=== PATIENT | female | born 1995 | race Caucasian/White ===

== ENCOUNTER 2017-06-04 20:43 | Emergency (ER) | payer OTHER ==
[~2017-06-04] VITALS: Ht 157.5 cm; Wt 68.1 kg
[2017-06-04 20:45] VITALS: TEMP 36.9; Ht 157.5 cm; Wt 68.1 kg
[2017-06-04] MEDS ORDERED: SODIUM CHLORIDE 0.9% 1000ML 1,000 ML IV STA (20:56)
[2017-06-04] MEDS ORDERED: PROMETHAZINE HCL INJ 6.25 MG in SODIUM CHLORIDE 0.9% 50ML 50 ML IV STA (20:56)
[2017-06-04] MEDS ORDERED: MoRPHine SULFATE 4 MG/ML 1 ML CARP\\VIAL IV STA (20:56)
[2017-06-04] MEDS ORDERED: ONDANSETRON INJ 2 MG/ML 2 ML VIAL IV STA ×2 (20:56→22:18)
[2017-06-04] MEDS ORDERED: ACETAMINOPHEN 500 MG TAB PO STA (20:56)
[2017-06-04] MEDS ORDERED: MoRPHine SULFATE 2 MG/ML CARP ONE (21:02)
--- NOTE | 2017-06-04 21:30 | DIAGNOSTIC IMAGING REPORT ---
CT SCAN OF THE BRAIN WITHOUT IV CONTRAST CLINICAL HISTORY: Head injury. COMPARISON STUDY: No priors. TECHNIQUE: Unenhanced axial CT scan of the brain is performed from the vertex to the skull base. A dose lowering technique was utilized adhering to the principles of ALARA. CT DOSE: 537.48 mGy.cm FINDINGS: Brain parenchyma: The brain parenchyma is normal in appearance. There is no hemorrhage, mass effect, or evidence of acute territorial ischemia by CT criteria. Hogue-white matter is preserved. No extra-axial fluid collection is seen. Ventricles, sulci, cisterns: Normal in configuration. Intracranial vasculature: The visualized intracranial vasculature at the skull base is normal in appearance. Calvarium: There is no depressed calvarial fracture. Sinuses and mastoids: The visualized paranasal sinuses are clear. The mastoid air cells are well pneumatized. Orbits: The bony orbits are grossly intact. IMPRESSION: No acute intracranial abnormality. Electronically signed by: Gurinder Justin M.D. 06/04/2017 9:28 PM Dictated Date/Time: 06/04/2017 9:27 PM
--- NOTE | 2017-06-04 21:43 | EMERGENCY ROOM VISIT NOTE ---
History Report prepared by Diana: Vladislav Mcfarlane Under the Supervision of: Dr. Gurinder Palomo M.D. First contact with patient: 20:50 Chief Complaint: HEAD INJURY (MINOR) Stated Complaint: HEAD INJURY, NEAR SYNCOPE History of Present Illness The patient is a 21 year old female who presents to the Emergency Room with complaints of a constant headache that started two days ago. She rates her pain as a 9/10 in severity. The patient states that she fell and hit the back of her head on carpet two nights ago. She states that she was drinking that night and denies any loss of conscious. She reports that following the incident she developed a headache. She states that she went to urgent care tonight and vomited. The patient admits that her head is "pounding" and admits that the pain is mostly in the back of her head. The patient admits that she has taken two Excedrin and Advil for her symptoms. She admits to a history of concussions and migraines. The patient states that she had not come in sooner because she thought the headache was due to her migraine history, but admits that her symptoms are worse. The patient admits that she has been congested. The patient denies fevers, cough, and cold. Source of History: patient Onset: two days ago Position: head Symptom Intensity: 9/10 Quality: other (pounding) Timing: constant Modifying Factors (Relieving): other (Advil, excedrin) Associated Symptoms: + nausea, + vomiting, No LOC, No fevers, No cough Review of Systems See HPI for pertinent positives & negatives. A total of 10 systems reviewed and were otherwise negative. Past Medical & Surgical Medical Problems: (1) Spondylosis Family History Patient reports no known family medical history. Social History Smoking Status: Never Smoker Alcohol Use: occasionally Drug Use: marijuana Marital Status: single Housing Status: lives with roommate Occupation Status: [employer] student Current/Historical Medications Scheduled Biotin (Biotin 5000), 1 CAP PO DAILY Calcium Carbonate-Vitamin D (Calcium), 1 TAB PO DAILY Cyanocobalamin (Vitamin B-12), 1,000 MCG PO DAILY Drospirenone-Ethinyl Estradiol (Sarah), 1 TAB PO DAILY Escitalopram Oxalate (Lexapro), 10 MG PO DAILY Magnesium Oxide (Mag-Ox), 400 MG PO DAILY Multiple Vitamins W/ Minerals (Womens One Daily), 1 TAB PO DAILY Naproxen (Naprosyn), 500 MG PO BID Allergies Uncoded Allergies: "ANYTHING ENDING IN MYCIN" PER PT (Allergy, Severe, ., 06/04/17) Physical Exam Vital Signs Date Time Temp Pulse Resp B/P (MAP) Pulse Ox O2 Delivery O2 Flow Rate FiO2 06/04/17 20:45 36.9 88 16 139/105 98 Room Air Physical Exam GENERAL: Patient is in no acute distress. Dry heaving. HEENT: No acute trauma, normocephalic atraumatic, mucous membranes moist, no nasal congestion, no scleral icterus. Pupils are equal, round, and reactive to light. NECK: No stridor, no adenopathy, no meningismus, trachea is midline. LUNGS: Clear to auscultation bilaterally, no wheeze, no rhonchi, breath sounds equal. HEART: Without murmurs gallops or rubs, regular rate and rhythm. ABDOMEN: Soft, nontender, bowel sounds positive, no hernias, no peritonitis. EXTREMITIES: No cyanosis or edema, full range of motion of all the joints without pain or difficulty, no signs for acute trauma. NEUROLOGIC: Oriented x 3, no acute motor or sensory deficits, no focal weakness. No pronator drift or cerebellar dysfunction. GCS 15. SKIN: No rash, no jaundice, no diaphoresis. Medical Decision & Procedures ER Provider Diagnostic Interpretation: CT results as stated below per my review and radiologist interpretation: CT SCAN OF THE BRAIN WITHOUT IV CONTRAST CLINICAL HISTORY: Head injury. COMPARISON STUDY: No priors. TECHNIQUE: Unenhanced axial CT scan of the brain is performed from the vertex to the skull base. A dose lowering technique was utilized adhering to the principles of ALARA. CT DOSE: 537.48 mGy.cm FINDINGS: Brain parenchyma: The brain parenchyma is normal in appearance. There is no hemorrhage, mass effect, or evidence of acute territorial ischemia by CT criteria. Hogue-white matter is preserved. No extra-axial fluid collection is seen. Ventricles, sulci, cisterns: Normal in configuration. Intracranial vasculature: The visualized intracranial vasculature at the skull base is normal in appearance. Calvarium: There is no depressed calvarial fracture. Sinuses and mastoids: The visualized paranasal sinuses are clear. The mastoid air cells are well pneumatized. Orbits: The bony orbits are grossly intact. IMPRESSION: No acute intracranial abnormality. Electronically signed by: Gurinder Justin M.D. 06/04/2017 9:28 PM Dictated Date/Time: 06/04/2017 9:27 PM Medications Administered Medications (Trade) Dose Ordered Sig/Deacon Route Start Time Stop Time Status Last Admin Dose Admin Ondansetron HCl (Zofran Inj) 4 mg NOW STAT IV 06/04/17 20:56 06/04/17 20:59 DC 06/04/17 21:06 4 MG Sodium Chloride 1,000 ml @ 999 mls/hr Q1H1M STAT IV 06/04/17 20:56 06/04/17 21:56 DC 06/04/17 21:07 999 MLS/HR Acetaminophen (Tylenol Tab) 1,000 mg NOW STAT PO 06/04/17 20:56 06/04/17 20:59 DC 06/04/17 21:06 1,000 MG Promethazine HCl 6.25 mg/Sodium Chloride 50.25 ml @ 204 mls/hr NOW STAT IV 06/04/17 20:56 06/04/17 21:10 DC 06/04/17 21:33 204 MLS/HR Morphine Sulfate (MoRPHine SULFATE INJ) 2 mg STK-MED ONCE .ROUTE 06/04/17 21:02 06/04/17 21:03 DC 06/04/17 21:07 2 MG Ketorolac Tromethamine (Toradol Inj) 30 mg NOW STAT IV 06/04/17 22:18 06/04/17 22:19 DC 06/04/17 22:23 30 MG Ondansetron HCl (Zofran Inj) 4 mg NOW STAT IV 06/04/17 22:18 06/04/17 22:19 DC 06/04/17 22:24 4 MG ED Course 2050: The patient was evaluated in room A10. A complete history and physical exam was performed. 2055: Ordered Promethazine HCl 6.25 mg/ Sodium Chloride 50.25 ml @ 204 mls/hr IV , Tylenol Tab 1000 mg PO, Sodium Chloride 1000 ml @ 999 mls/hr IV, Zofran Injection 4 mg IV. 2101: Ordered Morphine Sulfate 2 mg IV. 2216: I reevaluated the patient and she is feeling better. The patient reports that she would like something to eat. 2218: Ordered Zofran Injection 4 mg IV, Toradol Injection 30 mg IV. 2306: Reevaluated the patient. Discussed results and discharge instructions: She verbalized understanding and agreement. The patient is ready for discharge. 2315: Ordered Ondansetron HCL 1 homepack PO. Medical Decision The patient is a 21 year old female who presents to the ED with complaints of a constant headache that began two days ago. Differential diagnoses considered include migraine, headache, concussion, intracranial bleeding, dehydration, tension headache, and electrolyte imbalance. The patient presents after suffering head trauma. She described symptoms consistent with concussion. Brain CT was done, no acute bleed or mass effect was seen. On exam, there were no focal neurologic deficits. The patient had a Chase Coma Scale of 15. The patient received IV saline, IV Phenergan and IV Zofran. She was given oral Tylenol. Patient did receive IV Toradol and a second dose of IV Zofran. She received IV morphine for additional pain control. Patient feels improved. I do think she can be discharged. She was given head injury precautions. She will follow with the concussion Center for clearance. She was told to follow with [facility] as well. If worsening, she can return. She was given a few Zofran to use for nausea, [id number] pain meds were advised for her headache. If worsening, she can return. Head Trauma GCS Score: 15 Medication Reconcilliation Current Medication List: was personally reviewed by me Blood Pressure Screening Patient's blood pressure: Elevated blood pressure Blood pressure disposition: Elevated BP felt to be situational Impression Primary Impression: Concussion Additional Impressions: Vomiting Head trauma Scribe Attestation The scribe's documentation has been prepared under my direction and personally reviewed by me in its entirety. I confirm that the note above accurately reflects all work, treatment, procedures, and medical decision making performed by me. Departure Information Dispostion Home / Self-Care Referrals No Doctor, Assigned (PCP) [facility] Forms HOME CARE DOCUMENTATION FORM, IMPORTANT VISIT INFORMATION Patient Instructions ED Concussion, My [facility] Additional Instructions tylenol or advil for pain zofran 1 tab every 6 hours for nausea fluids rest no gym or sports until cleared by concussion center---call for appt--[phone] or contact [facility] no prolonged times of concentration as discussed return if worsening Problem Qualifiers
[2017-06-04] MEDS ORDERED: KETOROLAC TROMETHAMINE 30 MG/ML VIAL IV STA (22:18)
[2017-06-04] MEDS ORDERED: ONDANSETRON HOME PACK 4MG OD TAB PO ONE (23:15)
[2017-06-04 23:22] VITALS: BP 125/83; PULSE 82; O2SAT 98
[2017-06-05] MEDS ORDERED: ESCI1TAB6 PO (19:28)
[2017-06-05] MEDS ORDERED: NAPR-1169 PO (21:48)
[2017-06-05] MEDS ORDERED: BIOTCAP2 PO (21:48)
[2017-06-05] MEDS ORDERED: DROS1TAB24 PO (21:48)
[2017-06-05] MEDS ORDERED: CYAN10005 PO (21:48)
[2017-06-05] MEDS ORDERED: MAGN400T6 PO (21:48)
[2017-06-05] MEDS ORDERED: ESCI1TAB9 PO (21:48)
[2017-06-05] MEDS ORDERED: CALC-51 PO (21:48)
[2017-06-05] MEDS ORDERED: MULT-240 PO (21:48)
== END 2017-06-04 23:33 | disposition home or self-care (01) ==
LOC: C.EDB 20:45 → C.EDA 23:33
DX: S06.0X9A Concussion with loss of consciousness of unspecified duration, initial encounter (principal); M47.9 Spondylosis, unspecified; F12.90 Cannabis use, unspecified, uncomplicated; Z79.1 Long term (current) use of non-steroidal anti-inflammatories (NSAID); W19.XXXA Unspecified fall, initial encounter

== ENCOUNTER 2017-06-05 17:54 | Emergency (ER) | payer OTHER ==
[~2017-06-05] VITALS: Ht 157.5 cm; Wt 67.0 kg
[2017-06-05 18:08] VITALS: Ht 157.5 cm; Wt 67.0 kg
--- NOTE | 2017-06-05 19:05 | DIAGNOSTIC IMAGING REPORT ---
HEAD CT NONCONTRAST CT DOSE: 614.27 mGy.cm HISTORY: head injury, worsening symptoms, confusion, vomiting TECHNIQUE: Multiaxial CT images of the head were performed without the use of intravenous contrast. Automated exposure control was utilized for this study. A dose lowering technique was utilized adhering to the principles of ALARA. Comparison: Head CT 06/04/2017. Findings: The paranasal sinuses and mastoid air cells are clear. The calvarium and skull base are intact. The ventricles and sulci are within normal limits. There is no mass, hematoma, midline shift, or acute infarct. Impression: No acute intracranial abnormality. Electronically signed by: Dale Ramirez M.D. 06/05/2017 7:03 PM Dictated Date/Time: 06/05/2017 7:00 PM
[2017-06-05] MEDS ORDERED: ESCI1TAB6 PO (19:28)
--- NOTE | 2017-06-05 19:51 | EMERGENCY ROOM VISIT NOTE ---
History First contact with patient: 18:17 Chief Complaint: HEAD INJURY (MINOR) Stated Complaint: CONCUSSION History of Present Illness The patient is a 21 year old female who presents to the Emergency Room with complaints of a closed head injury. The patient reports that she sustained a head injury 4 days ago. She fell off a chair and hit the back of her head at that time. There was no loss of consciousness. The patient was seen here yesterday and had a negative head CT scan. The patient states that since the injury, she has had a persistent headache and had 2 episodes of vomiting yesterday. She does have a history of migraines as well as states that these headaches feel different. She does report a syncopal episode which happened 2 days ago, but feels this may be due to smoking marijuana. She states that she was rechecked today at [facility] and has been contacting them throughout the day. They were apparently concerned because the patient seemed confused and sent her here for a repeat CT scan due to concern for delayed bleed. The patient states that she has been falling asleep frequently and has felt "out of it." She rates her discomfort a 9/10. She states that she has been taking nausea medication with relief. She denies any blurred vision, slurred speech, numbness or weakness. She denies any new trauma. Review of Systems A complete 10 point review of systems was reviewed with the patient with pertinent positives and negatives as per history of present illness. All else were negative. Past Medical/Surgical History Medical Problems: (1) Spondylosis Family History Patient reports no known family medical history. Social History Smoking Status: Never Smoker Alcohol Use: occasionally Drug Use: marijuana Marital Status: single Housing Status: lives with roommate Occupation Status: [employer] student Current/Historical Medications Scheduled Biotin (Biotin 5000), 5 MG PO DAILY Calcium Carbonate-Vitamin D (Calcium), 1 TAB PO DAILY Cyanocobalamin (Vitamin B-12), 1,000 MCG PO DAILY Drospirenone-Ethinyl Estradiol (Sarah), 1 TAB PO DAILY Escitalopram Oxalate (Lexapro), 10 MG PO DAILY Escitalopram Oxalate (Lexapro), 5 MG PO DAILY Magnesium Oxide (Mag-Ox), 400 MG PO DAILY Multiple Vitamins W/ Minerals (Womens One Daily), 1 TAB PO DAILY Scheduled PRN Naproxen (Naprosyn), 500 MG PO BID PRN for Pain Physical Exam Vital Signs Date Time Temp Pulse Resp B/P (MAP) Pulse Ox O2 Delivery O2 Flow Rate FiO2 06/05/17 21:42 36.8 73 16 128/84 97 06/05/17 18:08 36.8 73 16 128/84 97 Room Air Physical Exam VITALS: Vitals are noted on the nurse's note and reviewed by myself. Vital signs stable. GENERAL: This is a 21-year-old female, in no acute distress, nondiaphoretic, well-developed well-nourished. SKIN: The skin was without rashes, erythema, edema, or bruising. EARS: External auditory canals clear, tympanic membranes pearly israel without erythema or effusion bilaterally. No hemotympanum. EYES: Pupils equal round and reactive to light and accommodation. Conjunctivae without injection, sclerae without icterus. Extraocular movements intact. MOUTH: Mucous membranes moist. NECK: Supple without nuchal rigidity. Cervical spine is nontender. HEART: Regular rate and rhythm without murmurs gallops or rubs. LUNGS: Clear to auscultation bilaterally without wheezes, rales or rhonchi. MUSCULOSKELETAL: Range of motion throughout. Strength 5/5 throughout. NEURO: Patient was alert and oriented to person place and time. Normal sensation to light and sharp touch. Deep tendon reflexes 2+ throughout. No focal neurological deficits. Normal finger to nose testing. Negative Romberg and pronator drift. Medical Decision & Procedures ER Provider Diagnostic Interpretation: HEAD CT NONCONTRAST CT DOSE: 614.27 mGy.cm HISTORY: head injury, worsening symptoms, confusion, vomiting TECHNIQUE: Multiaxial CT images of the head were performed without the use of intravenous contrast. Automated exposure control was utilized for this study. A dose lowering technique was utilized adhering to the principles of ALARA. Comparison: Head CT 06/04/2017. Findings: The paranasal sinuses and mastoid air cells are clear. The calvarium and skull base are intact. The ventricles and sulci are within normal limits. There is no mass, hematoma, midline shift, or acute infarct. Impression: No acute intracranial abnormality. Medical Decision Differential diagnosis includes intracranial hemorrhage, postconcussive syndrome , concussion, migraine headache, among others. The patient is a 21-year-old female who presents today complaining of persistent symptoms following a head injury. Patient was seen here yesterday and had a negative head CT. However, the patient complains of worsening symptoms and [facility] has apparently been in contact with the patient all day and feels she needs a repeat CT. Repeat CT was performed and read by radiology with no acute findings. Patient was reassured. She was given information for the concussion clinic. She had no neurological deficits on my exam and GCS was 15. She was encouraged to continue to follow-up with [facility] and the concussion clinic. She verbalized understanding of my assessment and treatment plan and was discharged home in good condition. Head Trauma GCS Score: 15 Medication Reconcilliation Current Medication List: was personally reviewed by me Blood Pressure Screening Patient's blood pressure: Normal blood pressure Impression Primary Impression: Concussion Departure Information Dispostion Home / Self-Care Condition GOOD Referrals [facility] (PCP) Patient Instructions My [facility] Additional Instructions You have been treated in the Emergency Department for a Closed Head Injury. You should follow-up with the concussion clinic. They are located at [address] [place] [address], [address]. You may call them to schedule an appointment at . There are open Sunday to Sunday from 8:30 AM to 5:[address] Scan of your head/brain demonstrated no acute bleeding or other abnormalities. This does not completely rule out the risk for future damage to the brain. For pain control, you can use the following [id number] medicines (if >12 yo): - Regular strength (325mg/tab) Tylenol (acetaminophen) 2 tabs every 4-6 hours as needed. Do not exceed 12 tablets in a 24 hour period. Avoid taking more than 4 grams (4000 mg) of Tylenol per day. This includes any other sources of acetaminophen you may take on a regular basis. - Regular strength (200 mg/tab) Advil (ibuprofen) 1-2 tabs every 4-6 hours as needed. Do not exceed a dose of 3200 mg per day. You should relax in a quiet, dark place for the rest of the day. Avoid any possible triggers including: cigarette smoke, caffeine, nicotine, chocolate, wine, beer, loud noises or music, or bright lights. You should follow-up with a primary care provider or [facility] as needed for a recheck. Return to the Emergency Department if your current symptoms worsen despite treatment course outlined above, or if you develop any of the following symptoms : intractable pain despite aforementioned treatment course, visual disturbances , loss of vision, unilateral weakness or facial drooping, slurring of speech, loss of coordination, or loss of consciousness.
[2017-06-05 21:42] VITALS: BP 128/84; PULSE 73; TEMP 36.8; O2SAT 97
[2017-06-05] MEDS ORDERED: NAPR-1169 PO (21:48)
[2017-06-05] MEDS ORDERED: CALC-51 PO (21:48)
[2017-06-05] MEDS ORDERED: DROS1TAB24 PO (21:48)
[2017-06-05] MEDS ORDERED: ESCI1TAB9 PO (21:48)
[2017-06-05] MEDS ORDERED: CYAN10005 PO (21:48)
[2017-06-05] MEDS ORDERED: MAGN400T6 PO (21:48)
[2017-06-05] MEDS ORDERED: MULT-240 PO (21:48)
[2017-06-05] MEDS ORDERED: BIOTCAP2 PO (21:48)
== END 2017-06-05 21:20 | disposition home or self-care (01) ==
LOC: C.EDB 17:55 → C.EDD 21:20
DX: S06.0X0A Concussion without loss of consciousness, initial encounter (principal); W07.XXXA Fall from chair, initial encounter; Y92.89 Other specified places as the place of occurrence of the external cause; M47.9 Spondylosis, unspecified